=== PATIENT | female | born 1960 | race African-American/Black ===

== ENCOUNTER 2017-04-03 08:11 | Emergency (ER) | payer OTHER ==
[~2017-04-03] VITALS: Ht 154.9 cm; Wt 65.8 kg
--- NOTE | ~2017-04-03 | EKG ---
[address] [address] ELECTROCARDIOGRAM REPORT Name: JOSIAH FAUST Room #: [facility]#: [id number] Admission: Attend Phys: Discharge: Date of : 62 Report #: [id number] THIS REPORT FOR: //name// [facility] ED Test Date: 2017-04-03 Test Time: 08:45:27 Pat Name: JOSIAH FAUST Department: Room: Gender: Captain Waiter: JAMES Reddy : 1960 Requested By: Abiola Corey Order Number: [id number] MD: Truong Mccord Measurements Intervals Newman Rate: 58 P: 47 NE: 153 QRS: 59 QRSD: 96 T: 37 QT: 436 QTc: 429 Interpretive Statements Sinus bradycardia Otherwise no significant abnormality No previous ECG available for comparison Electronically Signed On 04-03-2017 8:54:30 CDT by Truong Mccord [email or web address] <ELECTRONICALLY SIGNED> By: Truong Mccord MD, [facility] 04/03/17 0854 [id number] [id number] Troung Mccord MD, FACC /EPI
[~2017-04-03 08:11] MED LIST: ADDERALL 10 MG10 MG PO; FLEXERIL PO; ULTRAM 50MG TAB50 MG PO
[2017-04-03] MEDS ORDERED: LISINOPRIL-HCT1 EACH PO (08:14)
[2017-04-03] MEDS ORDERED: WELLBUTRIN SR150 MG PO (08:15)
[2017-04-03 08:41] LABS: ABSOLUTE NEUTROPHILS 1.8 thou/uL (1.4-8.2); BASOPHILS 0.5 % (0.0-2.0); EOSINOPHILS 0.7 % (0.0-3.0); HEMATOCRIT 37.6 % (37.0-47.0); HEMOGLOBIN 11.7 gm/dL (12.0-15.0); LYMPHOCYTES 46.6 % (24.0-44.0); MCH 23.2 pg (26.0-34.0); MCHC 31.2 g/dL (28.0-37.0); MCV 74.5 fL (80.0-100.0); PLATELET COUNT 247 thou/uL (150-400); POLYS 46.2 % (36.0-66.0); RBC 5.05 mil/uL (4.20-5.00); RDW 14.3 % (10.5-14.5)
[2017-04-03 08:43] LABS: MANUAL DIFF NO
[2017-04-03 08:47] LABS: CALCIUM 9.4 mg/dL (8.5-10.1); CREATININE 0.8 mg/dL (0.6-1.0); POTASSIUM 4.4 mmol/L (3.5-5.1)
[2017-04-03 09:52] LABS: URINE BILIRUBIN NEGATIVE (Negative); URINE BLOOD NEGATIVE (Negative); URINE COLOR YELLOW; URINE GLUCOSE-RANDOM* NEGATIVE (Negative); URINE KETONES NEGATIVE (Negative); URINE LEUKOCYTES-REFLEX TRACE (Negative); URINE PROTEIN (DIPSTICK) NEGATIVE (Negative); URINE UROBILINOGEN 0.2 E.U./dl (0.2-1.0)
[2017-04-03] MEDS ORDERED: HYDROCODONE-AP1 EAC6 PO (10:30)
[2017-04-03 10:47] VITALS: BP 127/75
== END 2017-04-03 10:48 | disposition home or self-care (01) ==
LOC: ER 08:11
PROVIDERS: Emergency Medicine
DX: R10.31 Right lower quadrant pain (principal); R55 Syncope and collapse; F10.99 Alcohol use, unspecified with unspecified alcohol-induced disorder; Z87.891 Personal history of nicotine dependence